=== PATIENT | male | born 1980 | race Caucasian/White ===

== ENCOUNTER 2024-12-10 10:02 | Day surgery (SDC) | payer OTHER ==
[~2024-12-10] VITALS: Ht 195.6 cm; Wt 85.4 kg
[~2024-12-10 10:02] MED LIST: DIPH50 PO; Lactated Ringer's 1,000 ML IV ONE; Zofran Odt4 MG SL; propofoL 50 ML IV ONE
[2024-12-10] MEDS ORDERED: HYDHCL25 (10:35)
[2024-12-10] MEDS ORDERED: BENZ100A (10:35)
[2024-12-10] MEDS ORDERED: PROM12.5S (10:35)
[2024-12-10] MEDS ORDERED: Lactated Ringer's 1,000 ML IV ONE (12:06)
[2024-12-10 14:27] VITALS: BP 116/68
== END 2024-12-10 13:20 | disposition home or self-care (01) ==
LOC: ORSCSDS 10:02
PROVIDERS: Internal Medicine Gastroenterology
PROC: 0DBK8ZX Excision of Ascending Colon, Via Natural or Artificial Opening Endoscopic, Diagnostic (ICD-10-PCS; principal; 2024-12-10 11:45)
DX: K62.5 Hemorrhage of anus and rectum (principal); D12.2 Benign neoplasm of ascending colon; K64.8 Other hemorrhoids
CPT/HCPCS: 88305; J2704; J7120